=== PATIENT | female | born 1990 | race African-American/Black ===

== ENCOUNTER 2017-09-15 21:25 | Emergency (ER) | payer SELFPAY ==
[2017-09-15 21:25] VITALS: BP 126/72; PULSE 89; RESP 14; TEMP 36.4; O2SAT 100; BMI 35.4
--- NOTE | 2017-09-15 21:43 | ED.VISSUMM ---
- ER Visit Summary Date of Service: 09/15/17 Chief Complaint: Abdominal pain History of Present Illness: The patient is a 27 F presenting with abdominal pain. States this started on . She has had pain in the periumbilical region. She has nausea with no vomiting. She has had diarrhea. She denies constipation. Denies blood in her stool. Denies urinary complaints. Denies fever. Denies possibility of . She has not had symptoms like this in the past. Physical Examination: Vitals are stable. Patient is afebrile. Alert no acute distress. HEENT exam is unremarkable. Neck is supple. Lungs are clear and equal bilaterally. Heart is regular rate and rhythm. Abdomen is soft epigastric and periumbilical tenderness. No rebound or guarding. No lower quadrant tenderness. Extremities are unremarkable. Skin is warm and dry. No focal neurologic deficit. Remainder of exam is unremarkable. Emergency Department Course and Treatment: Patient is given IV fluids, morphine, Zofran. CBC, chemistries unremarkable. Liver enzymes are normal except for ALT 68. Lipase is normal. Urinalysis shows 5-10 white cells. She has no dysuria or frequency. HCG negative. Patient is feeling much improved on reevaluation. Her abdomen is soft and nontender with no rebound or guarding. She is able to tolerate p.o. in the emergency department. She is given a prescription for Bentyl. She is advised to follow-up with Dr. Colin diamond sizer and sorter for no doc. Advised return to ED if worsening complaints. Disposition: Discharge home Impression: Abdominal pain, diarrhea This note was generated with Babytree dictation software. It may contain incorrect words, spelling, and punctuation that were not noted in review of the chart prior to signing ED Disposition - Plan for ED Patient: Chief Complaint: Abd Pain Instructions: ED Abdominal Pain Unkn Cause Prescriptions: Dicyclomine HCl [Bentyl] 20 mg PO TIDAC #20 capsule Referrals: Tee Colin DO [NON CLINICAL AFFILIATE] - [facility] Doctor,Out of [NON-STAFF] -
[2017-09-15] MEDS: 0.9% Normal Saline 1,000 ML 1000 ML IV (21:54)
[2017-09-15] MEDS: Ondansetron 4 MG/2 ML Vial IV (21:54)
[2017-09-15] MEDS: Morphine 4 MG/ML Syringe IV (21:54)
[2017-09-15 22:01] LABS: Absolute Lymphocyte Count 1.99 X10^3/ul (0.83-4.51); Absolute Neutrophil Count 4.7 X10^3/uL (2.0-7.7); Basophil# 0.02 X10^3/uL; Basophil% 0.3 % (0-1); Eosinophil# 0.17 X10^3/uL; Eosinophils% 2.3 % (0-5); Hematocrit 41.1 % (37-47); Hemoglobin 13.4 g/dl (12.0-15.0); Lymphocyte # 1.99 X10^3/ul (4.0); Lymphocyte % 26.5 % (19-41); Mean Corp Hgb Conc 32.6 g/gl (32-36); Mean Corpuscular Volume 98.1 fL (81-99); Mean Platelet Vol. 10.2 fl (6.2-12.0); Monocyte# 0.64 X10^3/uL; Monocyte% 8.5 % (0-10); Neutrophil # 4.68 X10^3/uL (2.7-7.7); Neutrophil % 62.3 % (47-70); Platelet Count 235 K/mm3 (150-450); RBC Distribution Width CV 12.7 % (11.6-14.6); Red Blood Count 4.19 M/mm3 (4.2-5.4); White Blood Count 7.5 K/mm3 (4.4-11.0)
[2017-09-15 22:04] LABS: POSITIVE COUNT NO; POSITIVE DIFFERENTIAL NO; POSITIVE MORPHOLOGY NO
[2017-09-15 22:22] LABS: AST(SGOT) 23 U/L (15-37); Alanine Aminotransfer ALT/SGPT 68 U/L (13-56); Albumin, Serum 3.7 g/dL (3.2-5.0); Alkaline Phosphatase 82 U/L (45-117); Anion Gap 6 (5-15); BUN 10 mg/dL (7-18); BUN/Creat Ratio 9.4 RATIO (10-20); Calcium,Total 8.7 mg/dL (8.5-10.1); Chloride 109 mmol/L (98-107); Creatinine, Serum 1.06 mg/dL (0.55-1.02); EST Glomerular Filtration Rate 67 mL/min (>60); Est Glom Filt Rate - Afr Amer 81 mL/min (>60); Estimated Creatinine Clearance 84.79 ml/min; Globulin 4.1 g/dL (2.2-4.2); Glucose 73 mg/dL (74-106); Lipase 81 U/L (73-393); Potassium 3.8 mmol/L (3.5-5.1); Protein, Total 7.8 g/dL (6.4-8.2); Sodium Level 144 mmol/L (136-145)
[2017-09-15 22:23] LABS: Pregnancy, Serum, hCG Quali. NEGATIVE Negative (0-9 Nonpreg)
[2017-09-15 22:48] LABS: Bacteria 0 SEEN /hpf (None Seen); Mucous, Urine 0 SEEN /hpf (<or=2+); Red Blood Cells-Urine 0 SEEN /hpf (0-5)
[2017-09-15 22:51] LABS: Color, Urine Yellow (Yellow); Glucose, Dipstick Normal (Normal); Ketone-Dipstick Negative (Negative); Leukocyte Esterase-Dipstick 100 /ul (Negative); Nitrite-Dipstick Negative (Negative); Occult Blood-Urine Negative /ul (Negative); Protein-Dipstick Negative (Negative); Specific Gravity, Urine 1.015 (1.002-1.030); Urine Bilirubin Dipstick Negative (Negative); Urine Clarity Sl. Cloudy (Clear); Urine Urobilinogen Normal (Normal); Urine pH 6.5 (5.0 - 8.0)
[2017-09-15 23:02] LABS: Squamous Epithelial Cells - UA 0-5 SEEN /hpf (5-10); White Blood Cells 5-10 SEEN /hpf (0-5)
--- NOTE | 2017-09-15 23:53 | DCINST.ED_ITS ---
ED Disposition - Plan for ED Patient: Chief Complaint: Abd Pain Instructions: ED Abdominal Pain Unkn Cause Prescriptions: Dicyclomine HCl [Bentyl] 20 mg PO TIDAC #20 capsule Referrals: [facility] Doctor,Out of [NON-STAFF] - Tee Colin DO [NON CLINICAL AFFILIATE] -
[2017-09-16] MEDS: Fluconazole 100 MG Tablet 150 MG PO (00:16)
[2017-09-16 00:24] VITALS: PULSE 88; RESP 16; O2SAT 99
== END 2017-09-16 00:25 | disposition home or self-care (01) ==
PROVIDERS: Emergency Provider Emergency Medicine
DX: R10.9 Unspecified abdominal pain (principal); R19.7 Diarrhea, unspecified; R11.0 Nausea
CPT/HCPCS: 80048; 80076; 81001; 83690; 84703; 85025; 99284; J7030; A4216; J2405

== ENCOUNTER 2021-06-26 13:11 | Emergency (ER) | payer SELFPAY ==
[2021-06-26 13:12] VITALS: BP 161/88; PULSE 87; RESP 18; TEMP 36.4; O2SAT 100; BMI 36.9
[2021-06-26] MEDS: Amox/Clavulanate 875 MG Tablet PO (14:27)
--- NOTE | 2021-06-26 17:02 | ED.VIS.DENTA ---
HPI History of Present Illness Chief Complaint: Dental Narrative Narrative: Cxti-[id number] female presenting with dental pain and left-sided facial swelling which is mild. No problems swallowing or breathing. She states that this started about 2 days ago. She took some antibiotic which she does not know the name of. This did not help. Patient recently traveled from [place] and moved here. She does not have an established dentist. She is currently awaiting her insurance to be approved through work and she will have dental insurance with this. She states that she cracked this tooth a while back and has never had a problem with it. It is the left premolar. PFSH PFSH Medical History no medical history Home Medications dicyclomine 20 mg PO TIDAC #20 capsule 09/15/17 [Rx Last Taken Unknown] amoxicillin-pot clavulanate 1 tab PO BID #20 tab 06/26/21 [Rx Last Taken Unknown] Allergy/AdvReac Type Severity Reaction Status Date / Time No Known Allergies Allergy Verified 06/26/21 13:13 Social History Smoking Status: Never smoker ROS ROS ED Constitutional Constitutional ED: Denies fever(s) or subjective Eyes Eyes: Denies blurry vision or change in vision ENT ENT ED: Reports other Details: Dental pain ; Denies rhinorrhea or sore throat Cardiovascular Cardiovascular: Denies chest pain or palpitations Respiratory/Chest Respiratory/Chest: Denies cough or dyspnea Gastrointestinal Gastrointestinal: Denies abdominal pain or nausea Genitourinary Genitourinary ED: Denies dysuria or hematuria Musculoskeletal Musculoskeletal: Denies arthralgias or myalgias Integumentary Denies abscess or rash Neurologic Neurologic: Denies headache(s) EXAM Physical Exam Const Vital Signs: 06/26/21 13:12 Temperature 97.5 F L Temperature Source Temporal Pulse Rate 87 Respiratory Rate 18 Blood Pressure 161/88 H Blood Pressure Mean 112 Pulse Ox 100 Oxygen Delivery Method Room Air Positive well nourished General Appearance ED: NAD HEENT HEENT Narrative: Percussion tenderness to the left premolar. Discharge local dental decay here. Negative for trauma Eyes PERRL and EOMs intact bilaterally Neck no lymphadenopathy and supple Resp normal respiratory effort and clear to auscultation bilaterally Cardio regular rate and regular rhythm Neuro oriented x3 and CN's II-XII intact bilaterally Sensorium / Orientation: alert and oriented to person Psych mental status grossly normal Skin no rashes or lesions noted MDM MDM MDM Narrative Medical decision making narrative: 31-year-old female with dental pain. The left the molar is tender to palpation. There is dental decay here. Patient has mild facial swelling. Patient protecting her airway. I feel she is stable for discharge home with Augmentin. She is to alternate Tylenol and ibuprofen. She is given a dental referral sheet. She is given return precautions. Impression: 1. Dental infection Discharge Plan Triage Chief Complaint: Dental ED Provider: Kennedy Lawson Dx/Rx/DC Orders Instructions: ED Dental Cavity Prescriptions: New amoxicillin-pot clavulanate 875-125 mg tablet 1 tab PO BID Qty: 20 RF: 0 No Action dicyclomine 10 MG capsule 20 mg PO TIDAC Qty: 20 RF: 0 Primary Care Provider: Care Physician,No Primary Referrals: Care Physician,No Primary [Primary Care Provider] - Disposition Disposition: Home, Self Care Discharge Date/Time: 06/26/21 14:30
== END 2021-06-26 14:30 | disposition home or self-care (01) ==
PROVIDERS: Emergency Provider Student in an Organized Health Care Education/Training Program; Visit Provider Student in an Organized Health Care Education/Training Program
DX: K04.7 Periapical abscess without sinus (principal); K02.9 Dental caries, unspecified
CPT/HCPCS: 99283

== ENCOUNTER 2022-05-14 09:37 | Observation (INO) | payer BC, SELFPAY ==
[2022-05-14] VITALS (8 sets, daily range): BP systolic 111–152; BP diastolic 55–82; PULSE 63–78; RESP 16–18; TEMP 36.6–36.8; O2SAT 98–100; BMI 41.4; BMI 43.7
--- NOTE | 2022-05-14 10:32 | EDS_ITS ---
HPI HPI - GI History of Present Illness Chief Complaint: Abd Pain Narrative Narrative: 32-year-old female presented with epigastric pain. She states has had this since Saturday. It waxes and wanes in severity. Patient states she was at work when this happened to start hurting. She has had fevers, chills, body aches. She states she is making normal stools. She is not having any vomiting episodes but states she is nauseous. She states it feels similar to a time when she drank too much alcohol but she has not been drinking. She states she tried to eat red beans and rice yesterday but this flared up her symptoms. [facility] History (Updated 05/14/22 @ 10:40 by Louisa Richard) Anxiety Home Medications NK 05/14/22 [History Last Taken Unknown] Allergy/AdvReac Type Severity Reaction Status Date / Time No Known Allergies Allergy Verified 05/14/22 09:37 Social History Smoking Status: Never smoker ROS ROS ED Constitutional Constitutional ED: Denies chills, fever(s) or sweats Eyes Eyes: Denies blurry vision or change in vision ENT ENT ED: Denies ear pain or sore throat Cardiovascular Cardiovascular: Denies chest pain, palpitations or racing heartbeat Respiratory/Chest Respiratory/Chest: Denies cough, dyspnea or sputum Gastrointestinal Gastrointestinal: Reports abdominal pain and nausea; Denies constipation, diarrhea or vomiting Genitourinary Genitourinary ED: Denies dysuria, hematuria or urinary frequency Musculoskeletal Musculoskeletal: Denies arthralgias, myalgias or neck pain Integumentary Denies abscess, Abrasions or rash Neurologic Neurologic: Denies headache(s), paresthesias or weakness Psychiatric Psychiatric: Denies anxiety, depression, suicidal ideation or suicidal thoughts Endocrine Endocrinology: Denies polydipsia or polyuria EXAM Physical Exam Const Vital Signs: 05/14/22 09:38 Temperature 97.8 F Temperature Source Temporal Pulse Rate 78 Respiratory Rate 16 Blood Pressure 127/78 H Blood Pressure Mean 94 Pulse Ox 98 Oxygen Delivery Method Room Air Positive well nourished General Appearance ED: NAD; Negative for pallor HEENT Reports moist mucous membranes normocephalic and atraumatic Eyes PERRL and EOMs intact bilaterally General Eye ED: Negative for pale conjunctiva or scleral icterus Neck no lymphadenopathy Resp normal respiratory effort and clear to auscultation bilaterally Effort and Inspection: Negative for respiratory distress Auscultation: Negative for rales, rhonchi or wheezes Cardio regular rate and regular rhythm GI Palpation: tender epigastric Back/Spine no CVA tenderness Neuro CN's II-XII intact bilaterally Sensorium / Orientation: alert Psych mental status grossly normal Skin General Skin Exam: Negative for jaundice or pallor MDM MDM MDM Narrative Medical decision making narrative: 32-year-old female presenting with epigastric pain. This started on Saturday. Its been pretty persistent since then. She states every time she eats she has pain and nausea. She points to her epigastrium. Differential includes but is not limited to GERD, gastritis, peptic ulcer disease, acute cholecystitis, acute cholelithiasis as this is most likely. Patient does explain to me that she has a history of feeling this pain when she drank too much. She has not been drinking. Initially she is given a GI cocktail and Zofran. She states there is no improvement. Given this I will add a CBC to assess white blood cell count, hemoglobin, differential. CMP to assess liver function, renal function, electrolytes. Lipase to assess for pancreatitis. Patient given morphine 4 mg IV and Reglan 10 mg IV. Urinalysis was obtained which shows small mount of bilirubin and urobilinogen. hCG negative.. CBC does not show leukocytosis. Hemoglobin hematocrit are stable. Platelets are normal. Renal function electrolytes appear to be within normal limits. Bilirubin is normal at 1.0. AST 741, ALT 802, alkaline phosphatase 148. Lipase normal at 73. Right upper quadrant ultrasound shows multiple gallstones in the region of gallbladder neck. Patient still having some mild pain but morphine did help with the pain. Patient will be admitted general surgery out of concern for acute cholecystitis. Patient given a dose of Zosyn in the ER. Impression: 1. Acute cholecystitis Lab Data Attestation: I reviewed the patient's lab results. Labs: Laboratory Results - last 24 hr 05/14/22 05/14/22 05/14/22 10:45 12:25 12:25 WBC 6.7 RBC 4.23 Hgb 13.7 Hct 41.5 MCV 98.1 MCH 32.4 H MCHC 33.0 RDW Std Deviation 45.2 H RDW Coeff of [place] 12.6 Plt Count 256 MPV 10.1 Immature Gran % (Auto) 0.300 Neut % (Auto) 67.3 Lymph % (Auto) 25.3 [place] % (Auto) 5.7 Eos % (Auto) 1.0 Baso % (Auto) 0.4 Absolute Neuts (auto) 4.5 Absolute Lymphs (auto) 1.70 Nucleated RBC % 0 Sodium 140 Potassium 4.1 Chloride 108 H Carbon Dioxide 26.0 Anion Gap 6 BUN 12 Creatinine 0.97 Estim Creat Clear Calc 88.63 Est GFR (MDRD) Af Amer 87 Est GFR (MDRD) Non-Af 72 BUN/Creatinine Ratio 12.4 Glucose 102 Calcium 9.5 Total Bilirubin 1.00 AST 741 H ALT 802 H Alkaline Phosphatase 148 H Total Protein 8.1 Albumin 3.8 Globulin 4.3 H Albumin/Globulin Ratio 0.9 Lipase 73 Urine Color Yellow Urine Clarity Sl. Cloudy Urine pH 6.0 Ur Specific Mark 1.020 Urine Protein 15 H Urine Glucose (UA) Normal Urine Ketones Negative Urine Occult Blood Negative Urine Nitrite Negative Urine Bilirubin 1 H Urine Urobilinogen 8 H Ur Leukocyte Esterase Negative Urine RBC 0 SEEN Urine WBC 0 SEEN Ur Squamous Epith Cells 0-5 SEEN Urine Bacteria 1+ Urine Mucus 0 SEEN Urine Test Negative Radiography Diagnostic Testing: Clinical Impression(s) from Imaging Studies Gallbladder Ultrasound 05/14/22 12:09 IMPRESSION: Fatty infiltration of the liver. Multiple gallstones in the region of the gallbladder neck. Electronically Signed: Luan Huynh MD at 13:53 EST , Discharge Plan Triage Chief Complaint: Abd Pain ED Provider: Kennedy Lawson Dx/Rx/DC Orders Primary Care Provider: Care Physician,No Primary
[2022-05-14] MEDS: Ondansetron ODT 4 MG Tablet PO (10:33)
[2022-05-14] MEDS: Mag Hydrox/Al Hydrox/Simeth 30 ML UDC PO (10:33)
[2022-05-14 10:53] LABS: Mucous, Urine 0 SEEN /hpf (<or=2+); Red Blood Cells-Urine 0 SEEN /hpf (0-5); White Blood Cells 0 SEEN /hpf (0-5)
[2022-05-14 10:55] LABS: Color, Urine Yellow (Yellow); Glucose, Dipstick Normal (Normal); Ketone-Dipstick Negative (Negative); Leukocyte Esterase-Dipstick Negative /ul (Negative); Nitrite-Dipstick Negative (Negative); Occult Blood-Urine Negative /ul (Negative); Protein-Dipstick 15 mg/dl (Negative); Urine Clarity Sl. Cloudy (Clear); Urine Urobilinogen 8 mg/dl (Normal)
[2022-05-14 10:57] LABS: Urine Bilirubin Dipstick 1 mg/dL (Negative)
[2022-05-14 11:02] LABS: Bacteria 1+ /hpf (None Seen); Internal QC Validated? YES +Cl - CLEAR BKGD; Pregnancy, Urine Negative Negative; Squamous Epithelial Cells - UA 0-5 SEEN /hpf (5-10)
--- NOTE | 2022-05-14 12:09 | US_ITS ---
STUDY: ABDOMINAL ULTRASOUND - RIGHT UPPER QUADRANT REASON FOR VISIT: Female, 32 years old rug pain/epigastric TECHNIQUE: Ultrasound evaluation of the right upper quadrant was performed with real-time and static rivera-scale imaging. TECHNICAL QUALITY: Adequate. COMPARISON: None. FINDINGS: Liver: The liver measures 15.1 cm. There is increased echogenicity consistent with fatty infiltration. The bile ducts are within normal limits. There is hepatic color flow. The direction of portal flow is hepatopetal. There is no demonstrated mass lesion. Gallbladder: Normal distended gallbladder. The gallbladder wall measures 2.7 mm. There is a negative sonographic Vela''s sign. There is no pericholecystic fluid. There are multiple echogenic structures within the gallbladder, consistent with multiple gallstones. Common Bile Duct (C.B.D.): The common bile duct measures 3.5 mm. Pancreas: Normal size of the head, body and tail of the pancreas. There is normal echogenicity of the pancreas. There is no demonstrated pancreatic mass or cyst. Right Kidney: Normal size of the right kidney. The right kidney measures 9.9 cm x 5.3 cm x 3.9 cm. Normal renal cortex. The right cortex measures 1.9 cm. There is no demonstrated renal mass or cyst. There is no right hydronephrosis. US/Gallbladder IMPRESSION: Fatty infiltration of the liver. Multiple gallstones in the region of the gallbladder neck. Electronically Signed: Luan Huynh MD at 13:53 EST ,
[2022-05-14] MEDS: Metoclopramide 10 MG/2 ML Vial IV (12:20)
[2022-05-14] MEDS: Morphine 4 MG/ML Syringe IV ×2 (12:20→18:13)
[2022-05-14 12:30] LABS: Absolute Neutrophil Count 4.5 X10^3/uL (2.0-7.7); Basophil# 0.03 X10^3/uL; Basophil% 0.4 % (0-1); Eosinophil# 0.07 X10^3/uL; Hematocrit 41.5 % (37-47); Hemoglobin 13.7 g/dL (12.0-15.0); Lymphocyte % 25.3 % (19-41); Mean Corpuscular Hgb 32.4 pg (27.0-32.0); Mean Corpuscular Volume 98.1 fL (81-99); Mean Platelet Vol. 10.1 fl (6.2-12.0); Monocyte# 0.38 X10^3/uL; Monocyte% 5.7 % (0-10); NRBC Flagged by Analyzer 0 % (0-5); Neutrophil # 4.52 X10^3/uL (2.7-7.7); Neutrophil % 67.3 % (47-70); Platelet Count 256 K/mm3 (150-450); RBC Distribution Width CV 12.6 % (11.6-14.6); RBC Distribution Width SD 45.2 fl (35.1-43.9); Red Blood Count 4.23 M/mm3 (4.2-5.4); White Blood Count 6.7 K/mm3 (4.4-11.0)
[2022-05-14 12:52] LABS: ALB/GLOB Ratio 0.9 RATIO (0.9-2.4); AST(SGOT) 741 U/L (15-37); Alanine Aminotransfer ALT/SGPT 802 U/L (13-56); Albumin, Serum 3.8 g/dL (3.2-5.0); Alkaline Phosphatase 148 U/L (45-117); Anion Gap 6 (5-15); BUN 12 mg/dL (7-18); BUN/Creat Ratio 12.4 RATIO (10-20); Calcium,Total 9.5 mg/dL (8.5-10.1); Chloride 108 mmol/L (98-107); Creatinine, Serum 0.97 mg/dL (0.55-1.02); EST Glomerular Filtration Rate 72 mL/min (>60); Est Glom Filt Rate - Afr Amer 87 mL/min (>60); Estimated Creatinine Clearance 88.63 ml/min; Globulin 4.3 g/dL (2.2-4.2); Glucose 102 mg/dL (74-106); Lipase 73 U/L (73-393); Potassium 4.1 mmol/L (3.5-5.1); Protein, Total 8.1 g/dL (6.4-8.2); Sodium Level 140 mmol/L (136-145)
--- NOTE | 2022-05-14 14:58 | EKG12_ITS ---
Test Reason : Blood Pressure : / mmHG Vent. Rate : 072 BPM Atrial Rate : 072 BPM P-R Int : 140 ms QRS Dur : 082 ms QT Int : 380 ms P-R-T Axes : 036 025 011 degrees QTc Int : 416 ms Normal sinus rhythm Normal ECG Confirmed by CAMRON PAUL, NÉSTOR ([id number]), photograph editor CHRIST JOEL ([id number]) on 05/16/2022 1:17:39 PM Referred By: JORGE Confirmed By:NÉSTOR LYON MD
--- NOTE | 2022-05-14 15:05 | PCM.HP.STD ---
HPI - General General Date of Admission: 05/14/22 Date of Service: 05/14/22 Chief Complaint: Epigastric, RUQ abdominal pain HPI Narrative CELESTE JONES, is a 32 F who presents with a 3 day history of intermittent epigastric/right upper quadrant abdominal pain. Patient noted on Saturday she woke up feeling as though someone had gut punched her in the upper abdomen. She noted she did not eat anything prior to the pain occurring. She noted associated nausea and belching with the abdominal pain. She denies vomiting however had the urge. She noted the pain had became more dull. On Saturday, the pain had returned following a meal at [employer]. She noted her symptoms returned an hour after finishing her meal. She noted the pain lasted for 2 hours after the symptoms occurred. She noted she felt soreness in her abdomen. She stated her symptoms returned this morning, which brought her to the ED. Patient notes she had previous similar symptoms last year when she would consume a lot of alcohol at one time. Patient notes she figured the alcohol was the reason for the symptoms so she stopped drinking. Patient denies any cardiac or pulmonary issues. She denies history of abdominal surgeries. She denies previous complications or side effects from anesthesia. She notes she does develop yeast infections following anesthesia. RUQ u/s completed in the ED demonstrated multiple gallstones in the gallbladder neck region. Fatty infiltration of the liver. Patient's liver enzymes are elevated. Total bili 1.00, AST 741, ALT 802, Alk Phos 148. [facility] Medical History (Updated 05/14/22 @ 15:29 by Imelda AU, PA-C) Anxiety Home Medications NK 05/14/22 [History Last Taken Unknown] Allergy/AdvReac Type Severity Reaction Status Date / Time No Known Allergies Allergy Verified 05/14/22 09:37 Social History Smoking Status: Never smoker ROS Constitutional Constitutional: Reports systems reviewed and no addt'l complaints, except as documented Eyes Eyes: Reports systems reviewed and no addt'l complaints, except as documented ENT HEENT: Reports systems reviewed and no addt'l complaints, except as documented Cardiovascular Cardiovascular: Reports systems reviewed and no addt'l complaints, except as documented Respiratory/Chest Respiratory/Chest: Reports systems reviewed and no addt'l complaints, except as documented Gastrointestinal Gastrointestinal: Reports systems reviewed and no addt'l complaints, except as documented Genitourinary Genitourinary: Reports systems reviewed and no addt'l complaints, except as documented Musculoskeletal Musculoskeletal: Reports systems reviewed and no addt'l complaints, except as documented Integumentary Integumentary: Reports systems reviewed and no addt'l complaints, except as documented Neurologic Neurologic: Reports systems reviewed and no addt'l complaints, except as documented Psychiatric Psychiatric: Reports systems reviewed and no addt'l complaints, except as documented Endocrine Endocrinology: Reports systems reviewed and no addt'l complaints, except as documented Hematologic/Lymphatic Hematologic/Lymphatic: Reports systems reviewed and no addt'l complaints, except as documented Allergic/Immunologic Allergic/Immunologic: Reports systems reviewed and no addt'l complaints, except as documented Vital Signs Vital Signs Vital Signs: 05/14/22 09:38 Temperature 97.8 F Temperature Source Temporal Pulse Rate 78 Respiratory Rate 16 Blood Pressure 127/78 H Blood Pressure Mean 94 Pulse Ox 98 Oxygen Delivery Method Room Air Weight Weight: 280 lb 12.8 oz Body Mass Index (BMI) 41.4 Physical Exam Const alert, oriented x3 and no apparent distress HEENT normocephalic Eyes PERRL and EOMs intact bilaterally Neck full ROM Lymph Lymphatic: no lymphadenopathy noted Chest inspection of chest normal Resp normal respiratory effort and normal air movement Cardio regular rate and regular rhythm GI soft to palpation Auscultation: hypoactive bowel sounds Palpation: tender RUQ and Vela's sign no CVA tenderness Back/Spine no CVA tenderness Extremity normal to inspection Skin no rashes or lesions noted Neuro no focal motor deficits and no sensory deficits noted Psych mental status grossly normal Results Lab / Micro Data Result Diagrams: 05/14/22 12:25 05/14/22 12:25 Labs: Laboratory Results - last 24 hr 05/14/22 10:45: Urine Color Yellow, Urine Clarity Sl. Cloudy, Urine pH 6.0, Ur Specific [place] 1.020, Urine Protein 15 H, Urine Glucose (UA) Normal, Urine Ketones Negative, Urine Occult Blood Negative, Urine Nitrite Negative, Urine Bilirubin 1 H, Urine Urobilinogen 8 H, Ur Leukocyte Esterase Negative, Urine RBC 0 SEEN, Urine WBC 0 SEEN, Ur Squamous Epith Cells 0-5 SEEN, Urine Bacteria 1+, Urine Mucus 0 SEEN, Urine Test Negative 05/14/22 12:25: WBC 6.7, RBC 4.23, Hgb 13.7, Hct 41.5, MCV 98.1, MCH 32.4 H, MCHC 33.0, RDW Std Deviation 45.2 H, RDW Coeff of Tatianna 12.6, Plt Count 256, MPV 10.1, Immature Gran % (Auto) 0.300, Neut % (Auto) 67.3, Lymph % (Auto) 25.3, [place] % (Auto) 5.7, Eos % (Auto) 1.0, Baso % (Auto) 0.4, Absolute Neuts (auto) 4.5, Absolute Lymphs (auto) 1.70, Nucleated RBC % 0 05/14/22 12:25: Sodium 140, Potassium 4.1, Chloride 108 H, Carbon Dioxide 26.0, Anion Gap 6, BUN 12, Creatinine 0.97, Estim Creat Clear Calc 88.63, Est GFR (MDRD) Af Amer 87, Est GFR (MDRD) Non-Af 72, BUN/Creatinine Ratio 12.4, Glucose 102, Calcium 9.5, Total Bilirubin 1.00, AST 741 H, ALT 802 H, Alkaline Phosphatase 148 H, Total Protein 8.1, Albumin 3.8, Globulin 4.3 H, Albumin/Globulin Ratio 0.9, Lipase 73 Radiology Impression Gallbladder Ultrasound 05/14/22 12:09 IMPRESSION: Fatty infiltration of the liver. Multiple gallstones in the region of the gallbladder neck. Electronically Signed: Luan Huynh MD at 13:53 EST , Assessment & Plan Assessment/Plan (1) Acute cholecystitis due to biliary calculus: PLAN: I am following this patient in conjunction with Dr. Benítez. We will plan to admit the patient. Dr. Benítez will plan to perform a laparoscopic cholecystectomy with intraoperative cholangiogram. Procedure details, risks and benefits have been explained. Patient has had the opportunity to ask and have questions answered. Patient verbally understands and agrees with the plan. Charges/Coding Visit Charges OBSV E&M: 68246 Observ/hosp same date L2
[2022-05-14] MEDS: 0.9% Saline Lock 10 ML Syringe IV ×2 (16:59→18:13)
[2022-05-14] MEDS: 0.9% Normal Saline 1,000 ML 100 ML IV (17:00)
[2022-05-14] MEDS: Ondansetron 4 MG/2 ML Vial IV (19:38)
[2022-05-15] VITALS (14 sets, daily range): BP systolic 114–141; BP diastolic 61–88; PULSE 67–95; RESP 16–18; TEMP 36–37.1; O2SAT 93–100; BMI 43.9; BMI 43.7
[2022-05-15] MEDS: 0.9% Normal Saline 1,000 ML 100 ML IV (05:31)
--- NOTE | 2022-05-15 06:00 | EKG12_ITS ---
Test Reason : PREOP Blood Pressure : / mmHG Vent. Rate : 075 BPM Atrial Rate : 075 BPM P-R Int : 160 ms QRS Dur : 084 ms QT Int : 380 ms P-R-T Axes : 060 038 028 degrees QTc Int : 424 ms Normal sinus rhythm Normal ECG Confirmed by CAMRON PAUL, NÉSTOR ([id number]), medical transcription editor CHRIST JOEL ([id number]) on 05/16/2022 1:25:55 PM Referred By: Confirmed By:NÉSTOR LYON MD
[2022-05-15 06:46] LABS: Absolute Lymphocyte Count 2.41 X10^3/uL (0.83-4.51); Absolute Neutrophil Count 4.4 X10^3/uL (2.0-7.7); Basophil# 0.05 X10^3/uL; Basophil% 0.7 % (0-1); Eosinophil# 0.13 X10^3/uL; Eosinophils% 1.8 % (0-5); Hematocrit 38.3 % (37-47); Hemoglobin 12.5 g/dL (12.0-15.0); Lymphocyte # 2.41 X10^3/ul (0.83-4.51); Lymphocyte % 32.5 % (19-41); Mean Corp Hgb Conc 32.6 g/dL (32-36); Mean Corpuscular Hgb 31.6 pg (27.0-32.0); Mean Platelet Vol. 10.5 fl (6.2-12.0); Monocyte# 0.46 X10^3/uL; Monocyte% 6.2 % (0-10); NRBC Flagged by Analyzer 0 % (0-5); Neutrophil # 4.35 X10^3/uL (2.7-7.7); Neutrophil % 58.5 % (47-70); Platelet Count 248 K/mm3 (150-450); RBC Distribution Width CV 12.6 % (11.6-14.6); RBC Distribution Width SD 45.2 fl (35.1-43.9); Red Blood Count 3.95 M/mm3 (4.2-5.4); White Blood Count 7.4 K/mm3 (4.4-11.0)
[2022-05-15 07:21] LABS: ALB/GLOB Ratio 0.9 RATIO (0.9-2.4); AST(SGOT) 250 U/L (15-37); Alanine Aminotransfer ALT/SGPT 524 U/L (13-56); Albumin, Serum 3.2 g/dL (3.2-5.0); Alkaline Phosphatase 126 U/L (45-117); Anion Gap 6 (5-15); BUN 10 mg/dL (7-18); BUN/Creat Ratio 10.6 RATIO (10-20); Calcium,Total 8.7 mg/dL (8.5-10.1); Chloride 107 mmol/L (98-107); Creatinine, Serum 0.94 mg/dL (0.55-1.02); EST Glomerular Filtration Rate 74 mL/min (>60); Est Glom Filt Rate - Afr Amer 89 mL/min (>60); Estimated Creatinine Clearance 91.46 ml/min; Globulin 3.7 g/dL (2.2-4.2); Glucose 88 mg/dL (74-106); Potassium 3.6 mmol/L (3.5-5.1); Protein, Total 6.9 g/dL (6.4-8.2); Sodium Level 138 mmol/L (136-145)
[2022-05-15] MEDS: Lactated Ringers 1,000 ML 15 ML IV ×3 (11:22→14:13)
[2022-05-15] MEDS: Bupiv/Epi 0.25% 30 ML Vial (12:30)
--- NOTE | 2022-05-15 12:36 | RAD_ITS ---
STUDY: INTRAOPERATIVE CHOLANGIOGRAM. REASON FOR EXAM: Female, 32 years old. Laparoscopic cholecystectomy. FLUOROSCOPY TIME (if supplied): ( 13 seconds ) minutes/seconds. 6.74 mGy. A cine run of 7 images was submitted. TECHNIQUE: An intraoperative cholangiogram was performed by the surgeon. Imaging was provided. COMPARISON: None. FINDINGS: The intra and extrahepatic biliary ducts are unremarkable. Free flow of contrast into the duodenum. No intraluminal filling defect is seen. RAD/Cholangiogram/ O R,Initial IMPRESSION: Unremarkable intraoperative cholangiogram. Electronically Signed: Luan Huynh MD at 13:30 EST ,
--- NOTE | 2022-05-15 12:45 | GALL_PTH ---
PATIENT: CELESTE JONES LOC: MS3 U#:[id number] AGE/SX: 32/F ROOM: [facility] [place] RE05/14/[address]: Dr. Yves Benítez MD : 1990 BED: 1 DIS: 05/15/2022 SPEC #: [id number] RECD: 05/15/22 16:25 STATUS: KIERAN JADE #: [id number] LISA: 05/15/22 12:[address]: Yves Benítez DEPT: SURGICAL PATHOLOGY RECD BY: Marcia Hoffman ENTERED: 05/16/22 12:14 SP TYPE: MARTÍNEZ CONTRERAS DR: No Primary Care Phys Tissues: Gallbladder, NOS Procedures: Surgery Specimen Level III HEADER OPERATION: Laparoscopic cholecystectomy with IOC PRE-OP DIAGNOSIS: Acute cholecystitis due to biliary calculus TISSUE SUBMITTED: Gallbladder MICROSCOPIC DIAGNOSIS Gallbladder, cholecystectomy: Chronic cholecystitis and cholelithiasis. AM:[place]olina 05/17/2022 MICROSCOPIC DESCRIPTION Slides are reviewed. GROSS DESCRIPTION Received is one container labeled with the patient's name and designated gallbladder. The specimen consists of a gallbladder measuring 9.0 cm in length and up to 3.0 cm in diameter. The external surface is pink-bey, smooth and glistening for the most part. Focally it is granular, hemorrhagic and contains cautery artifact. The gallbladder contains green-yellow mucoid bile and multiple variable sized irregular, brownish-black ovoid to multifaceted stones. The smaller stone measures in aggregate 1.5 x 0.5 x 0.3 cm and two larger stones measures 1.0 and 3.0 cm in greatest dimension. The smallest stone measures 0.1 cm in greatest dimension. The mucosa is bile-stained and without any mass lesions. The gallbladder wall measures up to 0.[address] Referee sections from the gallbladder and the cystic duct are submitted in one cassette. / SJ:carolina 05/16/2022 TC:3 CPT: 24709
--- NOTE | 2022-05-15 13:24 | PCM.OPRPT ---
Report of Operation Date of Procedure: 05/15/22 Pre-Operative Diagnosis: Acute cholecystitis Post-Operative Diagnosis: Same Surgery/Procedure Performed:: Laparoscopic cholecystectomy with cholangiogram Specimen's removed: Gallbladder Description of Procedure: After obtaining informed consent patient was brought back to the operating room. General anesthesia was induced. The abdomen was prepped and draped in usual sterile fashion. A small midline incision was made superior to the umbilicus and deepened to the level of fascia. The fascia was elevated and incised. Next the peritoneum was elevated and incised in the same fashion. Finger sweep was performed and the Talamantes trocar was placed into the abdomen. The balloon was inflated. The abdomen was inflated to 15 mmHg. Next a camera was introduced into the abdomen and the abdomen was inspected. Next under direct visualization three 5-mm ports were placed one subxiphoid and 2 subcostal. Next the gallbladder was elevated and retracted toward the right shoulder. The peritoneum was stripped from the gallbladder. The infundibulum was located and retracted laterally. Next the triangle of Calot was dissected and the cystic duct and cystic artery were identified. Cholangiograms were performed. The Fischer clamp was used to clamp across the infundibulum and the catheter needle was inserted into the gallbladder. Under fluoroscopy contrast was instilled into the gallbladder and the common duct, cystic duct as well as proximal hepatic ducts were identified. There was good filling of the duodenum. There were no filling defects noted in the common bile duct. The clamp was removed as well as the needle and the infundibulum was grasped once more. Three hemolock clips were placed across the cystic duct. The cystic duct was then divided leaving 2 clips on the stump. The cystic artery was clipped and divided in the same fashion. The hook cautery was then used to take the gallbladder off of the gallbladder bed. Hemostasis was obtained. Gallbladder fossa was irrigated and no active bleeding or bile leakage was noted. Next the camera was introduced in the subxiphoid port. An Endopouch bag was placed through the umbilical port and the gallbladder was placed into it. The gallbladder was then removed through the umbilical incision. The camera was then reinserted through the umbilical port. The gallbladder fossa was inspected once more and noted to be hemostatic with no leaking bile. The abdomen was suctioned dry. The 5 mm ports were removed under direct visualization. The umbilical port was then removed and the air was removed from the abdomen. Next using an 0 Vicryl suture the umbilical fascia was closed in a [id number] fashion. The umbilical port site was irrigated local anesthetic was administered to all the incisions. All the incisions were closed with interrupted subcuticular 4-0 Monocryl sutures followed by Steri-Strips and dressings. The patient was awoken and taken to PACU in stable condition. Admit VTE Documentation VTE Mechan Device Prophylaxis: SCD's
--- NOTE | 2022-05-15 13:26 | DCINST_ITS ---
Discharge Instructions Procedure Gallbladder Diet Discharge Diet: Light diet - advance as tolerated Activity Discharge Activity: May Not Drive (for 2-3 days or while taking narcotic pain medications.) and - (Do not drive, work heavy equipment or sign legal documents for 24 hours.) May shower in (days): 1 Lifting Restrictions: 20 lbs for 2 weeks Additional Activity Instructions:: Pain medication may cause nausea. You should typically eat light foods as you take your pain medications. Pain medication may also cause constipation. If this is a problem for you, please discuss with your doctor. Dressing / Incision Call your doctor if your incision/area has: Continuous Slow Oozing, Sudden Increased Bleeding, Increased Pain/ Swelling, Increased Redness and Foul Smelling Discharge Call your doctor if you observe: Fever of 101 or Higher Suture Line Care: Avoid Pulling/Pushing and Avoid Pinching/Bending Remove Dressing in: 2 days Additional Dressing/Incision Instructions:: Leave operative bandaids on for 2 days. When you remove dressing, leave Steri-Strips on until your follow-up appointment, or until the Steri-Strips fall off on their own. Follow Up Care Please Follow Up With: Yves Benítez MD When: Please call to schedule 2 week follow up appointment. [phone] Test Results: Test results from this visit will be discussed in further detail at your follow- up appointment, if applicable. Discharge Plan Admission Admit Date/Time: 05/14/22 14:46 Attending Provider: Yves Benítez Primary Care Provider: Care Physician,Belinda Primary Discharge Orders/Prescriptions Prescriptions: New acetaminophen 325 mg Tablet 650 mg PO Q6H PRN PRN (Reason: Pain 1-10 Or Fever >100.7) Qty: 0 0RF oxycodone 5 mg Tablet 5 - 10 mg PO Q4H PRN PRN (Reason: Pain Score 4-10) 5 Days Qty: 30 0RF Referrals / Follow Up: Care Physician,No Primary [Primary Care Provider] - Disposition Disposition (needs filled in before D/C Order can be placed): Home, Self Care
--- NOTE | 2022-05-15 15:32 | NURSING ---
pt family member Kwame at bedside. states his phone number is [phone] if he needs to be reached for any issues as he is going back to work.
[2022-05-15] MEDS: Acetaminophen 325 MG Tablet 650 MG PO (15:52)
[2022-05-15] MEDS: oxyCODONE 5 MG Tablet PO (15:52)
== END 2022-05-15 21:00 | disposition home or self-care (01) ==
LOC: ED 14:26 → MS3 14:58
PROVIDERS: Physician Assistant; Admitting Provider Surgery; Emergency Provider Student in an Organized Health Care Education/Training Program; Visit Provider Surgery
PROC: (CPT 47610; principal; 2022-05-15 12:25)
DX: K80.12 Calculus of gallbladder with acute and chronic cholecystitis without obstruction (principal); B37.9 Candidiasis, unspecified; K76.0 Fatty (change of) liver, not elsewhere classified
CPT/HCPCS: 47563; 00790; 99284; 36415; 74300; 76000; 76705; 80053; 81001; 81025; 83690; 85025; 88304; 93005; 94668; 96361; 96365; 96366; 96375; 96376; 99221; 99252; 99406; J7030; J7120; A4216; G0378; G0463; J2405